=== PATIENT | female | born 1935 | race Two or more races ===

== ENCOUNTER 2018-01-13 16:52 | Emergency (ER) | payer MEDICARE, MEDICAID ==
[~2018-01-13] VITALS: Ht 154.9 cm; Wt 74.8 kg
[2018-01-13] MEDS ORDERED: KETOROLAC TROMETHAMINE 15 MG INJ IM ONE (17:00)
[2018-01-13] MEDS ORDERED: KETOROLAC TROMETHAMINE 15 MG INJ ONE (17:15)
--- NOTE | 2018-01-13 18:52 | NUR ---
PT WAS EVALUATED BY DR MENON. PT WAS D/C TO HOME. D/C INSTRUCTIONS GIVEN TO THE PT BY DR MENON.
[2018-01-13 18:53] VITALS: BP 136/82
== END 2018-01-13 18:54 | disposition home or self-care (01) ==
LOC: ER 17:00
DX: M75.92 Shoulder lesion, unspecified, left shoulder (principal); I10 Essential (primary) hypertension; Z95.0 Presence of cardiac pacemaker
CPT/HCPCS: 93005; A4663; J1885

== ENCOUNTER 2021-09-18 18:07 | Emergency (ER) | payer MEDICARE, OTHER ==
[~2021-09-18] VITALS: Ht 165.1 cm; Wt 90.7 kg
--- NOTE | 2021-09-18 18:26 | NUR ---
PT IS IN ROOM #2A. DR GONZALEZ EVALUATED THE PT.
--- NOTE | 2021-09-18 18:35 | NUR ---
PT DOES NOT REMEMBER HER HOME MEDICATION NAMES AND DOSES.
--- NOTE | 2021-09-18 19:10 | NUR ---
pt a/o denies pain at this time. pt came in for a fall.
--- NOTE | 2021-09-18 19:47 | NUR ---
Dr. Jarvis at bedside of pt.
[2021-09-18] MEDS: TDAP DIPH,PERTUSS,TET VAC/PF 0.5 ML DISP.SYRIN IM ONE (20:09)
[2021-09-18] MEDS: ACETAMINOPHEN 650 MG/20.3 ML LIQUID UDC PO ONE (20:09)
[2021-09-18] MEDS ORDERED: TDAP DIPH,PERTUSS,TET VAC/PF 0.5 ML DISP.SYRIN IM ONE (20:13)
[2021-09-18] MEDS ORDERED: ACETAMINOPHEN 650 MG/20.3 ML LIQUID UDC ONE (20:13)
--- NOTE | 2021-09-18 20:16 | NUR ---
pt was taken for cat scan.
--- NOTE | 2021-09-18 20:29 | NUR ---
pt returned from cat scan.
--- NOTE | 2021-09-18 20:42 | NUR ---
pt was able to void on the bedpan with assist.
--- NOTE | 2021-09-18 22:22 | NUR ---
per dr. Jarvis pt is medically clear for discharge. Pt states she is unable to go home we called her son at [phone] he states he has covid 19 and cannot come to get her. spoke with Dr. Jarvis and [facility] charge nurse pt will stay in room 2a as observation. the patients son says to call him at 9am.
--- NOTE | 2021-09-18 23:37 | NUR ---
pt resting comfortably, asked to take the pts bp she declined says she does not need it done.
[2021-09-19] MEDS ORDERED: ACET-2154 PO (06:41)
--- NOTE | 2021-09-19 07:00 | NUR ---
report given to day shift rn.
--- NOTE | 2021-09-19 08:50 | NUR ---
Clinical Social Work Note SW consult was requested to assist with discharge planning. GOLDEN spoke with JAYLON Dutton, who informed SW that patient's son is refusing to fern picker mother and not open her home. GOLDEN called patient's son Romero ([phone]) to discuss patient's discharge. Romero stated that he has COVID thus can not pick her up. Per Romero, he will be driving to patients home to leave saldana and assist her. Romero stated that he is ordering an Uber for patient. Ganga called GOLDEN back to inform her that [employer] ETA is 3 minutes and that the car is a blue Toyota. GOLDEN called JAYLON Dutton and provided information regarding [employer] pickup.
--- NOTE | 2021-09-19 09:02 | NUR ---
resident discarge home via uber (prime) plate no. [id number] , as intructed by the son, pt, alert orineted x 4. discharge instruction to patient, patient verbalize understanding, wheelout to front door, 0850 vital 124/70, pulse 73, 02 sat 99% room air, no acute distress observed.
[2021-09-19 09:07] VITALS: BP 124/73
== END 2021-09-19 09:09 | disposition home or self-care (01) ==
LOC: ER 18:11
DX: M79.18 Myalgia, other site (principal); R51.9 Headache, unspecified; M54.2 Cervicalgia; S80.02XA Contusion of left knee, initial encounter; W18.39XA Other fall on same level, initial encounter; Y92.89 Other specified places as the place of occurrence of the external cause; E11.9 Type 2 diabetes mellitus without complications; R03.0 Elevated blood-pressure reading, without diagnosis of hypertension; K76.9 Liver disease, unspecified; Z95.0 Presence of cardiac pacemaker
CPT/HCPCS: 70450; 70486; 90715; A4663

== ENCOUNTER 2022-05-26 09:59 | Inpatient (IN) | payer MEDICARE, OTHER ==
[~2022-05-26] VITALS: Ht 162.6 cm; Wt 72.6 kg
[~2022-05-26 09:59] MED LIST: ACET-2154 PO
[2022-05-26] MEDS ORDERED: ACETAMINOPHEN ES 500 MG TABLET PO ONE (11:45)
[2022-05-26] MEDS ORDERED: ACETAMINOPHEN ES 500 MG TABLET ONE (11:52)
[2022-05-26 12:14] LABS: HEMATOCRIT 46.3 % (31.2-41.9); MEAN CORPUSCULAR HEMOGLOBIN 33.3 uug (24.7-32.8); MEAN CORPUSCULAR VOLUME 97.1 fL (75.5-95.3); PLATELET COUNT (AUTO) 200 K/uL (179-408)
[2022-05-26 12:32] LABS: ALANINE AMINOTRANSFERASE 27 U/L (14-59); ALKALINE PHOSPHATASE 80 U/L (50-136); ASPARTATE AMINOTRANSFERASE 21 U/L (15-37); BILIRUBIN,DIRECT 0.1 mg/dL (0.0-0.2); BILIRUBIN,TOTAL 0.7 mg/dL (0.2-1.0); CARBON DIOXIDE 29 mmol/L (21-32); CHLORIDE 100 mmol/L (98-107); CREATININE 1.1 mg/dL (0.6-1.3); GLUCOSE 132 mg/dL (74-106); POTASSIUM 3.9 mmol/L (3.5-5.1); TOTAL PROTEIN, SERUM 7.8 g/dL (6.4-8.2); UREA NITROGEN, BLOOD 16 mg/dL (7-18)
[2022-05-26 12:59] LABS: CREATINE KINASE, TOTAL 51 U/L (26-192)
[2022-05-26] MEDS ORDERED: ONDANSETRON 4 MG/2 ML VIAL IV PRN (17:00)
[2022-05-26] MEDS ORDERED: ENOXAPARIN SODIUM 40 MG/0.4 ML DISP.SYRIN SQ SCH ×2 (17:00→22:08)
[2022-05-26] MEDS ORDERED: REMEDY ESSENTIAL ZINC PASTE 113 GM TP PRN (17:00)
[2022-05-26] MEDS ORDERED: MAGNESIUM HYDROXIDE 30 ML LIQUID UDC PO PRN (17:00)
[2022-05-26] MEDS ORDERED: AZITHROMYCIN 250 MG TABLET PO ONE (17:15)
--- NOTE | 2022-05-26 19:37 | NUR ---
Patient [facility] with C/O multiple falls X 3 days, she has had 2 falls today at home. Patient is unclear if she had any loss of consciousness. No bleeding known. Unable to walk after the second fall, and called EMS. Patient denies fevers/chills/chest pain. Patient likely mechanical falls based on her description. Does not seem to have been down on the ground for extended period of time. Complains of pain in neck, though she states this is chronic. Also with some pain in the right shoulder. Denies pain in her hips or legs. Denies any chest pain or shortness of breath. Denies any vision change. Denies any weakness or numbness. No other complaints at this time. Has not taken any medication for symptoms. Patient is A/O X 4, Patient seen by the ER MD. 22G angio-cath inserted to (LT) hand and blood collected and sent. Patient medicated as per orders (see eMAR). All ordered diagnostic test completed as ordered. Patient placed on Airborne/droplet precaution secondary to (+) COVID-19 results. Patient is admitted, stable on the monitor, stretcher in the lowest position, call gutierrez within reach and awaiting assigned bed. Bedside report given to [facility] on-coming nurse.
[2022-05-26] MEDS ORDERED: ENOXAPARIN SODIUM 40 MG/0.4 ML DISP.SYRIN SQ ONE (19:51)
[2022-05-26] MEDS ORDERED: AZITHROMYCIN 250 MG TABLET ONE (19:52)
[2022-05-26 23:02] VITALS: BP 127/69
[2022-05-27 04:11] VITALS: BP 119/71
[2022-05-27 06:53] LABS: MEAN CORPUSCULAR HEMOGLOBIN 33.1 uug (24.7-32.8); MEAN CORPUSCULAR VOLUME 96.8 fL (75.5-95.3); PLATELET COUNT (AUTO) 179 K/uL (179-408)
[2022-05-27 07:02] LABS: MAGNESIUM 2.1 mg/dL (1.8-2.4); PHOSPHOROUS 3.3 mg/dL (2.5-4.9); POTASSIUM 3.2 mmol/L (3.5-5.1)
[2022-05-27] MEDS ORDERED: POTASSIUM CHLORIDE 20 MEQ TAB.PRT.SR PO ONE (09:30)
[2022-05-27] MEDS: ACETAMINOPHEN 325 MG TABLET PO PRN ×2 (10:19→20:31)
[2022-05-27 11:39] VITALS: BP 131/78
[2022-05-27 16:00] VITALS: BP 154/68
[2022-05-27 20:00] VITALS: BP 131/72
[2022-05-27] MEDS: ENOXAPARIN SODIUM 40 MG/0.4 ML DISP.SYRIN SQ SCH ×2 (20:31→20:45)
[2022-05-28] MEDS: ACETAMINOPHEN 325 MG TABLET PO PRN ×3 (02:03→18:05)
[2022-05-28 04:00] VITALS: BP 139/73
[2022-05-28 07:34] LABS: CARBON DIOXIDE 27 mmol/L (21-32); CHLORIDE 105 mmol/L (98-107); CREATININE 0.9 mg/dL (0.6-1.3); GLUCOSE 119 mg/dL (74-106); POTASSIUM 3.9 mmol/L (3.5-5.1); UREA NITROGEN, BLOOD 13 mg/dL (7-18)
[2022-05-28] MEDS ORDERED: POTASSIUM CHLORIDE 20 MEQ TAB.PRT.SR PO ONE (09:00)
[2022-05-28] MEDS ORDERED: FUROSEMIDE 20 MG/2 ML VIAL IV ONE (09:00)
[2022-05-28 15:57] VITALS: BP 145/83
--- NOTE | 2022-05-28 19:30 | NUR ---
Received patient lying in bed. AAox4. In no acute distress. Denies any pain or SOB. On O2 at 2LPM via NC in place. O2 sat at 99%. No coughing noted at this time. COVID precaution observed. Needs assessed and attended to. Safety measure initiated and call light within reached.
[2022-05-28 20:00] VITALS: BP 132/72
[2022-05-28 20:10] VITALS: BP 149/79
[2022-05-28] MEDS: ENOXAPARIN SODIUM 40 MG/0.4 ML DISP.SYRIN SQ SCH (20:51)
[2022-05-29] MEDS: ACETAMINOPHEN 325 MG TABLET PO PRN ×2 (03:59→12:13)
[2022-05-29 04:00] VITALS: BP 117/63
--- NOTE | 2022-05-29 06:54 | NUR ---
Slept well during the night. Tylenol 650mg given x1 for gen pain and effective. Denies any SOB. No coughing noted. Needs attended to and met. COVID precaution maintained. Safety measure maintained and call light within reached.
[2022-05-29 07:17] LABS: HEMATOCRIT 46.7 % (31.2-41.9); MEAN CORPUSCULAR HEMOGLOBIN 32.6 uug (24.7-32.8); MEAN CORPUSCULAR VOLUME 97.4 fL (75.5-95.3); PLATELET COUNT (AUTO) 175 K/uL (179-408)
[2022-05-29 07:43] LABS: THYROID STIMULATING HORMONE 1.828 mIU/mL (0.358-3.740)
--- NOTE | 2022-05-29 08:00 | NUR ---
RECEIVED PT ON BED HAVING BFAST. NO ACUTE DISTRESS NOTED. NO COMPLAIN OF PAIN; NO SOB; COVID PRECAUTION WAS OBSERVED.
[2022-05-29 08:38] LABS: BILIRUBIN,TOTAL 0.5 mg/dL (0.2-1.0); CREATININE 0.9 mg/dL (0.6-1.3); MAGNESIUM 2.2 mg/dL (1.8-2.4); PHOSPHOROUS 3.7 mg/dL (2.5-4.9); POTASSIUM 4.3 mmol/L (3.5-5.1); TOTAL PROTEIN, SERUM 7.2 g/dL (6.4-8.2)
[2022-05-29 11:24] VITALS: BP 140/78
--- NOTE | 2022-05-29 15:26 | NUR ---
PT IS MEDICALLY CLEARED FOR DISCHARGE PER MD. PT WILL GO TO [facility]
[2022-05-29] MEDS ORDERED: MULT-594 PO (15:37)
[2022-05-29] MEDS ORDERED: DOCU-141 PO (15:37)
[2022-05-29] MEDS ORDERED: ATOR10TA PO (15:37)
[2022-05-29] MEDS ORDERED: MENT113O TP (15:37)
[2022-05-29] MEDS ORDERED: ACET325T53 PO (15:37)
[2022-05-29] MEDS ORDERED: ENOX40DI SQ (15:37)
[2022-05-29] MEDS ORDERED: MAGN400O6 PO (15:37)
[2022-05-29] MEDS ORDERED: FURO-152 PO (15:40)
--- NOTE | 2022-05-29 16:00 | NUR ---
GAVE REPORT TO CAITLYN IYER OF [facility].
[2022-05-29 17:29] VITALS: BP 107/71
--- NOTE | 2022-05-29 17:48 | NUR ---
PT IS DISCHARGE. PT WILL GO TO [facility]. PT IS AMBULATORY. NO ACUTE DISTRESS NOTED. VITALS WNL. ALL BELONGINGS ACCOUNTED FOR. PT LEFT WITH AMBULANCE VIA GURNEY.
== END 2022-05-29 17:45 | DRG 178 ==
LOC: ER 10:16 → MEDSURG3 21:31
PROVIDERS: ADMIT Internal Medicine; ATTEND Internal Medicine
DX: U07.1 COVID-19 (principal); D68.59 Other primary thrombophilia; N17.9 Acute kidney failure, unspecified; E86.0 Dehydration; R53.1 Weakness; E78.5 Hyperlipidemia, unspecified; E87.6 Hypokalemia; Z95.0 Presence of cardiac pacemaker; Z74.09 Other reduced mobility; I48.91 Unspecified atrial fibrillation; Z91.81 History of falling; E66.9 Obesity, unspecified; Z68.27 Body mass index [BMI] 27.0-27.9, adult; I25.10 Atherosclerotic heart disease of native coronary artery without angina pectoris; M19.90 Unspecified osteoarthritis, unspecified site; N28.1 Cyst of kidney, acquired; D75.89 Other specified diseases of blood and blood-forming organs; K76.9 Liver disease, unspecified; R29.6 Repeated falls
CPT/HCPCS: 36415; 70450; 71045; 72125; 72170; 73030; 83735; 84100; 84443; 84484; 85025; 93005; A4663; A6213; A9150; G0378; J1650; J1940; J7040; Q0144; U0003